=== PATIENT | male | born 1940 | race Caucasian/White ===

== ENCOUNTER 2017-11-23 05:04 | Emergency (ER) | payer MEDICARE, BC ==
[2017-11-23] MEDS: FUROSEMIDE 20mg SOL IV ONE (05:11)
[2017-11-23] MEDS: SODIUM CHLORIDE 0.9% 1000ML 1,000 ML IV ONE (05:23)
[2017-11-23] MEDS ORDERED: ETOMIDATE 2 MG/ML SOL IV ONE (05:27)
[2017-11-23] MEDS ORDERED: SUCCINYLCHOLINE CHLORIDE 20 MG/ML SOL IV ONE (05:27)
[2017-11-23] MEDS: DOPAMINE PREMIX 400,000 MCG/250 ML SOL IV PRN (05:40)
[2017-11-23 06:01] LABS: HEMATOCRIT 31 % (39-53); HEMOGLOBIN 9.8 gm/dl (13.5-17.7); MEAN CORPUSCULAR HEMOGLOBIN 28.2 pg (27.0-32.0); MEAN CORPUSCULAR HGB CONC 31.9 gm/dl (32.0-36.0); MEAN CORPUSCULAR VOLUME 88 fL (80-100)
[2017-11-23 06:02] LABS: BAND NEUTROPHILS % (MANUAL) 12 %; BASOPHILS % (MANUAL) 0 % (0-3); EOSINOPHILS % (MANUAL) 0 % (0-9); LYMPHOCYTES % (MANUAL) 30 % (10-50); MONOCYTES % (MANUAL) 6 % (0-12); NEUTROPHILS % (MANUAL) 52 % (37-80); NORMAL RBCS PRESENT
[2017-11-23] MEDS: ETOMIDATE 2 MG/ML SOL IV ONE (06:02)
[2017-11-23 06:03] LABS: BILIRUBIN,TOTAL 1.1 mg/dl (0.2-1.0); CALCIUM 8.9 mg/dl (8.5-10.1); CARBON DIOXIDE 29.8 mEq/L (21-32); CREATININE 2.57 mg/dl (0.80-1.30); POTASSIUM 3.5 mMol/L (3.5-5.1)
[2017-11-23 06:04] LABS: ALBUMIN 3.1 gm/dl (3.4-5.0); TOTAL PROTEIN 6.5 gm/dl (6.4-8.2); TROP I 0.043 ng/ml (0.000-0.056)
[2017-11-23] MEDS: SUCCINYLCHOLINE CHLORIDE 20 MG/ML SOL IV ONE (06:04)
[2017-11-23 06:05] LABS: ABG PH 7.42 (7.35-7.45)
[2017-11-23 06:11] LABS: INR 2.4 (0.86-1.12)
[2017-11-23] MEDS ORDERED: NOREPINEPHRINE BITARTRATE 4 MG/4 ML SOL IV ONE (06:13)
[2017-11-23] MEDS ORDERED: ROCURONIUM BROMIDE 10 MG/ML SOL IV ONE (06:14)
[2017-11-23] MEDS: SODIUM CHLORIDE 0.9% IV SCH (06:15)
[2017-11-23] MEDS: NOREPINEPHRINE IV SCH (06:15)
[2017-11-23] MEDS: ROCURONIUM BROMIDE 10 MG/ML SOL IV ONE (06:20)
[2017-11-23] MEDS: SODIUM CHLORIDE 0.9% FLUSH 10 ML SOL IV PRN (06:30)
[2017-11-23 06:43] VITALS: TEMP 99.4
[2017-11-23 08:24] VITALS: BP 91/56; PULSE 86; RESP 44; O2SAT 97
== END 2017-11-23 06:40 | disposition short-term general hospital (02) | DRG 204 ==
LOC: EDBD → ED 05:04 → SUPCPDRO 05:04 → ED 06:40
DX: R06.03 Acute respiratory distress (principal); M25.569 Pain in unspecified knee; R63.1 Polydipsia; R06.02 Shortness of breath; Z98.890 Other specified postprocedural states
CPT/HCPCS: 31500; 36415; 36600; 71045; 80053; 82550; 82803; 83880; 84484; 85007; 85027; 85610; 85730; 93005; 99291; J0330; J1940; A9270-GY; J3490